=== PATIENT | male | born 1980 | race African-American/Black ===

== ENCOUNTER 2020-05-10 22:25 | Emergency (ER) | payer SELFPAY ==
[~2020-05-10] VITALS: Ht 170.2 cm; Wt 86.2 kg
[2020-05-10 23:53] VITALS: BP 146/93
[2020-05-11] MEDS ORDERED: LIDOCAINE 1% HCL (LOCAL ANESTH.) INJ 20ML MDV IJ ONE
== END 2020-05-11 00:36 | disposition home or self-care (01) ==
LOC: ER 22:25
DX: S81.811A Laceration without foreign body, right lower leg, initial encounter (principal); I10 Essential (primary) hypertension; X58.XXXA Exposure to other specified factors, initial encounter; Y93.89 Activity, other specified; Y92.89 Other specified places as the place of occurrence of the external cause; Y99.8 Other external cause status
CPT/HCPCS: 12002

== ENCOUNTER 2020-05-21 11:45 | Emergency (ER) | payer MEDICAID ==
[~2020-05-21] VITALS: Ht 170.2 cm; Wt 86.2 kg
[2020-05-21 12:03] VITALS: BP 154/94
== END 2020-05-21 14:19 | disposition home or self-care (01) ==
LOC: ER 11:45
DX: S81.811D Laceration without foreign body, right lower leg, subsequent encounter (principal); I10 Essential (primary) hypertension; F17.210 Nicotine dependence, cigarettes, uncomplicated; X58.XXXD Exposure to other specified factors, subsequent encounter